=== PATIENT | female | born 1975 | race Caucasian/White ===

== ENCOUNTER 2017-02-22 14:49 | Emergency (ER) | payer MEDICARE, MEDICAID | END 2017-02-22 15:40 | disposition left against medical advice (07) | LOC: ER 14:49 | DX: Z53.20 Procedure and treatment not carried out because of patient's decision for unspecified reasons (principal) ==

== ENCOUNTER 2017-02-22 20:55 | Emergency (ER) | payer MEDICAID, MEDICARE ==
--- NOTE | 2017-02-22 21:22 | Emergency Department Record ---
History of Present Illness - General Chief complaint: Dental Stated complaint: DENTAL PAIN Time Seen by Provider: 02/22/17 21:20 Source: Patient Mode of Arrival: Ambulatory Limitations: No limitations - History of Present Illness Initial comments: 41 yo female presents to ED with a CC of dental pain for the past 1 week. Patient reports that her PCP recently treated her symptoms with Keflex which improved her pain symptoms. Patient denies fevers, chills, or gingival swelling. Patient reports a chronic history of dental caries as she is scarred to go to the dentist. Patient has been taking Tylenol and Motrin without significant improvement in her pain symptoms. MD complaint: Tooth pain Onset/Timin -: Week(s) Severity: Severe Quality: Aching Consistency: Constant Improves with: None Worsens with: None Context- Dental: History of dental caries, Poor dental care Associated Symptoms: Toothache - Related Data Home Medications Medication Instructions Recorded Confirmed Last Taken Dextroamphetamine/Amphetamine 20 mg PO DAILY 03/28/14 02/22/17 08/28/14 [Adderall Xr 20 mg Capsule] Clonazepam 0.25 mg PO QHS PRN #30 11/14/16 Unknown Previous Rx's Medication Instructions Recorded Cephalexin [Keflex] 500 mg PO QID #27 cap 02/22/17 Hydrocodone/Acetaminophen [[place] 1 tab PO Q6H PRN #5 tab 02/22/17 5mg/325mg] Allergies Allergy/AdvReac Type Severity Reaction Status Date / Time ephedrine Allergy RASH Unverified 01/15/17 16:21 erythromycin base Allergy RASH Unverified 01/15/17 16:21 [Erythromycin Base] Penicillins Allergy RASH Unverified 01/15/17 16:21 clendamycin Allergy Intermediate NAUSEA Uncoded 01/15/17 16:21 Travel Screening - Travel/Exposure Within Last 30 Days Have you traveled within the last 30 days?: No Review of Systems Constitutional: Denies: Chills, Fever, Malaise, Night sweats Eyes: Denies: Eye discharge, Eye pain, Photophobia ENT: Reports: Dental pain, Other (Right sided facial swelling). Denies: Congestion, Ear pain, Epistaxis Respiratory: Denies: Cough, Dyspnea Cardiovascular: Denies: Chest pain, Dyspnea on exertion, Palpitations, Paroxysmal nocturnal dyspnea Endocrine: Denies: Fatigue, Heat or cold intolerance Gastrointestinal: Denies: Abdominal pain, Nausea, Vomiting Genitourinary: Denies: Dysuria, Frequency, Hematuria, Incontinence Musculoskeletal: Denies: Arthralgia, Back pain, Gout, Joint swelling Skin: Denies: Bruising, Change in color Neurological: Denies: Abnormal gait, Confusion, Headache, Seizure Psychiatric: Denies: Anxiety Hematological/Lymphatic: Denies: Anemia, Blood Clots Past Medical History - SOCIAL HISTORY Smoking Status: Current every day smoker Alcohol Use: None Drug Use: None - RESPIRATORY Hx Respiratory Disorders: No - CARDIOVASCULAR Hx Cardio Disorders: No - NEURO Hx Neuro Disorders: Yes Hx Headaches: Yes Hx Seizures: Yes - GI Hx GI Disorders: No - Hx Genitourinary Disorders: No - ENDOCRINE Hx Endocrine Disorders: No - MUSCULOSKELETAL Hx Musculoskeletal Disorders: No - PSYCH Hx Psych Problems: No - HEMATOLOGY/ONCOLOGY Hx Hematology/Oncology Disorders: No Family Medical History Any Significant Family History?: Yes Hx Cancer: Mother Hx Diabetes: Father, Grandparents Hx Heart Disease: Father Hx HTN: Father Physical Exam - General General Appearance: Alert, Oriented x3, Cooperative Limitations: No limitations - Head Head exam: Atraumatic, Normocephalic, Normal inspection Head exam detail: Other (Mild STS to the right infra-orbital region). negative : Abrasion, Contusion, Oliveros's sign, General tenderness, Hematoma, Laceration - Eye Eye exam: Normal appearance. negative: Conjunctival injection, Periorbital swelling, Periorbital tenderness, Scleral icterus - ENT Ear exam: negative: Auricular hematoma, Auricular trauma Nasal Exam: negative: Active bleeding, Discharge, Dried blood, Foreign body Mouth exam: negative: Drooling, Laceration, Muffled voice, Tongue elevation Teeth exam: Dental caries, Dental tenderness #. negative: Gingival enlargement Throat exam: negative: Tonsillar erythema, Tonsillomegaly, R peritonsillar mass , L peritonsillar mass Image of Mouth/Teeth: 1 - Dental tenderness, no gingival STS - Neck Neck exam: Normal inspection. negative: Meningismus, Tenderness - Respiratory Respiratory exam: Normal lung sounds bilaterally. negative: Rales, Respiratory distress, Rhonchi, Stridor - Cardiovascular Cardiovascular Exam: Regular rate, Normal rhythm, Normal heart sounds - GI/Abdominal GI/Abdominal exam: Soft. negative: Rebound, Rigid, Tenderness - Rectal Rectal exam: Deferred - exam: Deferred - Extremities Extremities exam: Normal inspection. negative: Calf tenderness, Pedal edema, Tenderness - Back Back exam: Denies: CVA tenderness (R), CVA tenderness (L) - Neurological Neurological exam: Alert, Normal gait, Oriented X3 - Psychiatric Psychiatric exam: Normal affect, Normal mood - Skin Skin exam: Normal color. negative: Abrasion Type of lesion: negative: abrasion Course Vital Signs 02/22/17 21:11 Temperature 98.7 F Pulse Rate [ 105 H Pulse Ox Probe] Respiratory 20 Rate Blood Pressure 146/91 [Left Arm] Pulse Ox 100 - Reevaluation(s) Reevaluation #1: 02/22/17 21:28 Patient's symptoms appear c/w dental caries, patient appears stable for discharge on Keflex (reports this worked well for her previously) and [place] for her pain symptoms. Patient is going to call [facility] in the morning for dental follow-up. Disposition Disposition: Discharge Clinical Impression: Dental caries Disposition: Home, Self-Care Condition: (2) Stable Instructions: Dental Abscess (ED) Additional Instructions: Return to ED if your symptoms worsen or if you have any concerns. [place] and Keflex as directed. Follow-up with [facility] in 1-2 days as directed. Prescriptions: Cephalexin [Keflex] 500 mg PO QID #27 cap Hydrocodone/Acetaminophen [[place] 5mg/325mg] 1 tab PO Q6H PRN #5 tab PRN Reason: Pain - General Forms: Patient Portal Access Time of Disposition: 21:22
[2017-02-22] MEDS ORDERED: HYDROCODONE/APAP 5/325MG TABLET PO ONE (21:25)
[2017-02-22] MEDS ORDERED: CEPHALEXIN 500 MG CAPSULE PO STA (21:25)
== END 2017-02-22 21:32 | disposition home or self-care (01) ==
LOC: ER 20:55
DX: K02.9 Dental caries, unspecified (principal)
CPT/HCPCS: 99282

== ENCOUNTER 2017-03-07 19:04 | Emergency (ER) | payer MEDICARE, MEDICAID ==
--- NOTE | 2017-03-07 19:23 | Emergency Department Record ---
History of Present Illness - General Chief Complaint: Headache Migraine Stated Complaint: SANDHU Time Seen by Provider: 03/07/17 19:17 Source: Patient Mode of Arrival: Ambulatory Limitations: No limitations - History of Present Illness Initial Comments: 41 yo female presents with a headache. She reports a history many years of migraines. They have been worse in the last 3 months as she has been dealing with stress, dental problems. She does not have aura. She does have light sensitivity. No vomiting but she does have nausea. No vision changes, no weakness. No new or atypical symptoms that are different form her prior migraines. She has left lower dental pain that has been ongoing for one month. She recently improved on Keflex but she feels the swelling returning. No neck pain. MD Complaint: "Migraine" -: Days(s) Onset Description: Gradual Location: Diffuse Severity: Moderate Quality: Aching Consistency: Constant Improves With: Nothing Worsens With: Light, Noise Context: Other Associated Symptoms: Nausea, Photophobia Treatments Prior to Arrival: Ibuprofen - Related Data Home Medications Medication Instructions Recorded Confirmed Last Taken Dextroamphetamine/Amphetamine 20 mg PO DAILY 03/28/14 03/07/17 08/28/14 [Adderall Xr 20 mg Capsule] Clonazepam 0.25 mg PO QHS PRN #30 11/14/16 03/07/17 Unknown Previous Rx's Medication Instructions Recorded Cephalexin [Keflex] 500 mg PO QID #28 cap 03/07/17 Allergies Allergy/AdvReac Type Severity Reaction Status Date / Time clindamycin Allergy PT UNSURE Verified 03/07/17 19:28 OF REACTION ephedrine Allergy RASH Unverified 01/15/17 16:21 erythromycin base Allergy RASH Unverified 01/15/17 16:21 [Erythromycin Base] Penicillins Allergy RASH Unverified 01/15/17 16:21 Review of Systems Constitutional: Denies: Chills, Fever, Malaise, Weakness Eyes: Denies: Eye discharge ENT: Reports: As per HPI, Dental pain. Denies: Congestion, Throat pain Respiratory: Denies: Cough, Dyspnea, Hemoptysis, Stridor, Wheezes Cardiovascular: Denies: Chest pain, Palpitations, Syncope Endocrine: Denies: Fatigue Gastrointestinal: Reports: Nausea. Denies: Diarrhea Genitourinary: Denies: Dysuria, Frequency, Urgency Musculoskeletal: Denies: Arthralgia, Back pain, Myalgia, Neck pain Skin: Denies: Bruising, Change in color, Rash Neurological: Reports: As per HPI, Headache. Denies: Abnormal gait, Confusion, Numbness, Paresthesias, Seizure, Tingling, Vertigo, Weakness Psychiatric: Denies: Anxiety Hematological/Lymphatic: Denies: Blood Clots, Easy bleeding, Easy bruising, Swollen glands Past Medical History - SOCIAL HISTORY Smoking Status: Current every day smoker Drug Use: None - RESPIRATORY Hx Respiratory Disorders: No - CARDIOVASCULAR Hx Cardio Disorders: No - NEURO Hx Neuro Disorders: Yes Hx Headaches: Yes Hx Seizures: Yes - GI Hx GI Disorders: No - Hx Genitourinary Disorders: No - ENDOCRINE Hx Endocrine Disorders: No - MUSCULOSKELETAL Hx Musculoskeletal Disorders: No - PSYCH Hx Psych Problems: No - HEMATOLOGY/ONCOLOGY Hx Hematology/Oncology Disorders: No Family Medical History Hx Cancer: Mother Hx Diabetes: Father, Grandparents Hx Heart Disease: Father Hx HTN: Father Physical Exam - General General Appearance: Alert, Oriented x3, Cooperative, No acute distress Limitations: No limitations - Head Head exam: Atraumatic, Normocephalic, Normal inspection - Eye Eye exam: Normal appearance, PERRL. negative: Conjunctival injection, EOMI, Periorbital swelling - ENT ENT exam: Normal exam, Mucous membranes moist, TM's normal bilaterally Ear exam: Normal external inspection Nasal Exam: Normal inspection Mouth exam: Normal external inspection Teeth exam: Dental caries, Dental tenderness #, Fractured tooth #, Other (No abscess). negative: Normal inspection, Gingival enlargement Throat exam: Normal inspection. negative: Tonsillar erythema, Tonsillomegaly, R peritonsillar mass, L peritonsillar mass - Neck Neck exam: Normal inspection, Full ROM. negative: Lymphadenopathy, Meningismus , Tenderness - Respiratory Respiratory exam: Normal lung sounds bilaterally. negative: Respiratory distress - Cardiovascular Cardiovascular Exam: Regular rate, Normal rhythm, Normal heart sounds - GI/Abdominal GI/Abdominal exam: Soft - Rectal Rectal exam: Deferred - exam: Deferred - Extremities Extremities exam: Normal inspection, Full ROM, Normal capillary refill. negative: Calf tenderness, Pedal edema, Tenderness - Back Back exam: Reports: Normal inspection, Full ROM. Denies: CVA tenderness (R), CVA tenderness (L), Muscle spasm, Paraspinal tenderness, Rash noted, Tenderness , Vertebral tenderness - Neurological Neurological exam: Alert, CN II-XII intact, Normal gait, Oriented X3. negative : Motor sensory deficit - Psychiatric Psychiatric exam: Normal affect, Normal mood - Skin Skin exam: Dry, Intact, Normal color, Warm Course - Reevaluation(s) Reevaluation #1: EMR reviewed for prior ED visits for migraine. Multiple noted but not with significant frequency 03/07/17 19:20 Reevaluation #2: MAPS reviewed No pattern of obvious abuse We did discuss Narcotic monitoring and any intermediate teacher treatments would be through a PCP. The patient has a ride and states she will not be driving. 03/07/17 19:43 03/07/17 20:10 Disposition Disposition: Discharge Clinical Impression: Pain, dental Migraine Qualifiers: Migraine type: without aura Status migrainosus presence: without status migrainosus Intractability: not intractable Qualified Code(s): G43.009 - Migraine without aura, not intractable, without status migrainosus Instructions: Migraine Headache (ED), Toothache (ED) Additional Instructions: Rest and stay well hydrated Return to the ER if worse, vomiting, fever or any new concerns Call your doctor Thursday for close follow up follow up with your dentist next available appointment Prescriptions: Cephalexin [Keflex] 500 mg PO QID #28 cap Forms: Patient Portal Access Time of Disposition: 19:34
[2017-03-07] MEDS ORDERED: CEPHALEXIN 500 MG CAPSULE PO STA (19:32)
[2017-03-07] MEDS ORDERED: NALBUPHINE HCL 20 MG/ML AMPULE IM ONE (19:32)
== END 2017-03-07 20:11 | disposition home or self-care (01) ==
LOC: ER 19:04
DX: G43.009 Migraine without aura, not intractable, without status migrainosus (principal); K08.89 Other specified disorders of teeth and supporting structures; R11.0 Nausea; H53.149 Visual discomfort, unspecified
CPT/HCPCS: 99283 ×2; 96372; J2300

== ENCOUNTER 2017-12-23 12:08 | Emergency (ER) | payer MEDICARE, MEDICAID ==
--- NOTE | 2017-12-23 13:13 | Emergency Department Record ---
History of Present Illness - General Chief complaint: Abscess Stated complaint: ABSSESS TOOTH Time Seen by Provider: 12/23/17 13:03 Mode of Arrival: Ambulatory - History of Present Illness Initial comments: yesterday painful upper right canine tooth which is also broken and she has a dentist and her right side of face is swollen. Onset/Timin -: Days(s) Location: Generalized Severity: Mild Severity scale (1-10): 7 Quality: Aching Consistency: Constant Improves with: None Worsens with: None Treatments Prior to Arrival: Other Treatment Prior to Arrival Comment:: ibuprofen 0700 - Related Data Previous Rx's Medication Instructions Recorded Cephalexin [Keflex] 500 mg PO QID #40 cap 12/23/17 Naproxen [Naprosyn] 500 mg PO Q12H #30 tab. 12/23/17 Allergies Allergy/AdvReac Type Severity Reaction Status Date / Time clindamycin Allergy PT UNSURE Verified 12/23/17 12:40 OF REACTION ephedrine Allergy RASH Verified 12/23/17 12:40 erythromycin base Allergy RASH Verified 12/23/17 12:40 [Erythromycin Base] Penicillins Allergy RASH Verified 12/23/17 12:40 Travel Screening - Travel/Exposure Within Last 30 Days Have you traveled within the last 30 days?: No - Travel/Exposure Within Last Year Have you traveled outside the [place] in the last year?: No - Additonal Travel Details Have you been exposed to anyone with a communicable illness?: No Review of Systems Reviewed: No additional complaints except as noted below Constitutional: Reports: As per HPI. Denies: Chills, Fever, Malaise, Night sweats, Weakness, Weight change Eyes: Reports: As per HPI. Denies: Eye discharge, Eye pain, Photophobia, Vision change ENT: Reports: As per HPI, Dental pain. Denies: Congestion, Ear pain, Epistaxis , Hearing loss, Throat pain Respiratory: Reports: As per HPI. Denies: Cough, Dyspnea, Hemoptysis, Stridor, Wheezes Cardiovascular: Reports: As per HPI. Denies: Arrhythmia, Chest pain, Dyspnea on exertion, Edema, Murmurs, Orthopnea, Palpitations, Paroxysmal nocturnal dyspnea, Rheumatic Fever, Syncope Endocrine: Reports: As per HPI. Denies: Fatigue, Heat or cold intolerance, Polydipsia, Polyuria Gastrointestinal: Reports: As per HPI. Denies: Abdominal pain, Constipation, Diarrhea, Hematemesis, Hematochezia, Melena, Nausea, Vomiting Genitourinary: Reports: As per HPI. Denies: Abnormal menses, Discharge, Dyspareunia, Dysuria, Frequency, Hematuria, Incontinence, Retention, Urgency Musculoskeletal: Reports: As per HPI. Denies: Arthralgia, Back pain, Gout, Joint swelling, Myalgia, Neck pain Skin: Reports: As per HPI. Denies: Bruising, Change in color, Change in hair/ nails, Lesions, Pruritus, Rash Neurological: Reports: As per HPI. Denies: Abnormal gait, Confusion, Headache, Numbness, Paresthesias, Seizure, Tingling, Tremors, Vertigo, Weakness Psychiatric: Reports: As per HPI. Denies: Anxiety, Auditory hallucinations, Depression, Homicidal thoughts, Suicidal thoughts, Visual hallucinations Hematological/Lymphatic: Reports: As per HPI. Denies: Anemia, Blood Clots, Easy bleeding, Easy bruising, Swollen glands Past Medical History - SOCIAL HISTORY Smoking Status: Current every day smoker Alcohol Use: None Drug Use: None - RESPIRATORY Hx Respiratory Disorders: No - CARDIOVASCULAR Hx Cardio Disorders: No - NEURO Hx Neuro Disorders: Yes Hx Headaches: Yes Hx Seizures: Yes - GI Hx GI Disorders: No Hx Irritable Bowel: Yes (IBSD) - Hx Genitourinary Disorders: No - ENDOCRINE Hx Endocrine Disorders: No - MUSCULOSKELETAL Hx Musculoskeletal Disorders: No - PSYCH Hx Psych Problems: No Hx Anxiety: Yes Hx Depression: Yes Comment:: ADD - HEMATOLOGY/ONCOLOGY Hx Hematology/Oncology Disorders: No Family Medical History Any Significant Family History?: No Hx Cancer: Mother Hx Diabetes: Father, Grandparents Hx Heart Disease: Father Hx HTN: Father Physical Exam - General General Appearance: Alert, Oriented x3, Cooperative, No acute distress - Head Head exam: Normal inspection - Eye Eye exam: Normal appearance, PERRL Pupils: Normal accommodation - ENT ENT exam: Normal exam, Mucous membranes moist, Normal external ear exam, Normal orophraynx, TM's normal bilaterally Ear exam: Normal external inspection. negative: External canal tenderness Nasal Exam: Normal inspection. negative: Discharge, Sinus tenderness Mouth exam: Normal external inspection, Tongue normal Teeth exam: Dental tenderness #, Fractured tooth #, Other (swollen gum). negative: Dental caries Throat exam: Normal inspection. negative: Tonsillar erythema, Tonsillar exudate - Neck Neck exam: Normal inspection, Full ROM. negative: Tenderness - Respiratory Respiratory exam: Normal lung sounds bilaterally. negative: Respiratory distress - Cardiovascular Cardiovascular Exam: Regular rate, Normal rhythm, Normal heart sounds - GI/Abdominal GI/Abdominal exam: Soft, Normal bowel sounds. negative: Tenderness - Rectal Rectal exam: Deferred - exam: Deferred - Extremities Extremities exam: Normal inspection, Full ROM, Normal capillary refill. negative: Tenderness - Back Back exam: Reports: Normal inspection, Full ROM. Denies: Muscle spasm, Rash noted, Tenderness - Neurological Neurological exam: Alert, Normal gait, Oriented X3, Reflexes normal - Psychiatric Psychiatric exam: Normal affect, Normal mood - Skin Skin exam: Dry, Intact, Normal color, Warm, Other (facial swelling upper lip and into right cheek ) Course Vital Signs 12/23/17 12:33 Temperature 98.4 F Pulse Rate 105 H Respiratory 20 Rate Blood Pressure 152/86 Pulse Ox 99 - Reevaluation(s) Reevaluation #1: patient states she doesn't know what the PCN reactin was she was a baby but she has had keflex before with no problems 12/23/17 13:18 Disposition Clinical Impression: Dental infection, Dental caries Tooth fracture Qualifiers: Encounter type: initial encounter Fracture type: closed Qualified Code(s): S02.5XXA - Fracture of tooth (traumatic), initial encounter for closed fracture Disposition: Home, Self-Care Instructions: Dental Abscess (ED), Gingivostomatitis (ED) Additional Instructions: follow up with a dentist in 2 days return to ED if worse warm water rinses 8 times a day Prescriptions: Cephalexin [Keflex] 500 mg PO QID #40 cap Naproxen [Naprosyn] 500 mg PO Q12H #30 tab.dr Forms: Patient Portal Access Time of Disposition: 13:20 Quality - Quality Measures Quality Measures: N/A - Blood Pressure Screening Does Patient Have Any of the Following: No Blood Pressure Classification: Pre-Hypertensive BP Reading Systolic Measurement: 152 Diastolic Measurement: 86 Screening for High Blood Pressure: < Pre-Hypertensive BP, F/U Documented > [ [id number]] Pre-Hypertensive Follow-up Interventions: Referral to alternative/primary care provider.
[2017-12-23] MEDS: CEFTRIAXONE 1 GRAM VIAL IM ONE (13:29)
== END 2017-12-23 13:56 | disposition home or self-care (01) ==
LOC: ER 12:08
DX: S02.5XXA Fracture of tooth (traumatic), initial encounter for closed fracture (principal); K02.9 Dental caries, unspecified; K04.7 Periapical abscess without sinus; X58.XXXA Exposure to other specified factors, initial encounter; F17.210 Nicotine dependence, cigarettes, uncomplicated
CPT/HCPCS: 96372; 99283

== ENCOUNTER 2019-06-02 11:31 | Emergency (ER) | payer MEDICARE, MEDICAID ==
--- NOTE | 2019-06-02 11:42 | Emergency Department Record ---
History of Present Illness - General Stated Complaint: LEFT FLANK PAIN Time Seen by Provider: 06/02/19 11:33 Source: Patient Mode of Arrival: Ambulatory Limitations: No limitations - History of Present Illness Initial Comments: 43 yo female presents with left flank pain for about 4 days. The pain started in the back and now wraps around to the front. No fever. No rash. No vomiting but she has some nausea. No changes in bowel function. No bloody stools or diarrhea. No history of renal stones. She has had her gall bladder and appendix removed. No history of diverticulitis. It hurts to move around at times. Dr Willis is her PCP. MD Complaint: Abdominal pain, Flank pain -: Days(s) (4) Location: L Flank Radiation: LUQ, LLQ Migration to: LUQ, LLQ Quality: Aching, Sharp Consistency: Constant Improves With: Nothing Worsens With: Movement Context: Other Associated Symptoms: Nausea - Related Data Home Medications Medication Instructions Recorded Confirmed Last Taken Cholecalciferol (Vitamin D3) 4,000 unit PO DAILY 06/02/19 06/02/19 Unknown [Vitamin D3] Multivitamin [Multi-Vitamin Daily] 1 each PO DAILY 06/02/19 06/02/19 Unknown Rosuvastatin Calcium [Crestor] 20 mg PO DAILY 06/02/19 06/02/19 Unknown Previous Rx's Medication Instructions Recorded Hydrocodone/APAP 5/325Mg [[place] 1 each PO Q6H #8 tab 06/02/19 5Mg/325Mg] Allergies Allergy/AdvReac Type Severity Reaction Status Date / Time clindamycin Allergy PT UNSURE Verified 06/02/19 11:42 OF REACTION ephedrine Allergy RASH Verified 06/02/19 11:42 erythromycin base Allergy RASH Verified 06/02/19 11:42 [Erythromycin Base] Penicillins Allergy RASH Verified 06/02/19 11:42 doxycycline AdvReac Mild GI distress Verified 06/02/19 11:42 Review of Systems Constitutional: Denies: Chills, Fever, Malaise, Weakness Eyes: Denies: Eye discharge ENT: Denies: Congestion, Throat pain Respiratory: Denies: Cough, Dyspnea, Wheezes Cardiovascular: Denies: Chest pain, Palpitations, Syncope Endocrine: Denies: Fatigue, Polydipsia, Polyuria Genitourinary: Denies: Abnormal menses, Dysuria, Frequency, Hematuria, Incontinence, Retention, Urgency Musculoskeletal: Reports: Back pain. Denies: Arthralgia, Joint swelling, Myalgia Skin: Denies: Bruising, Change in color, Rash Neurological: Denies: Confusion, Headache, Numbness, Weakness Psychiatric: Denies: Anxiety Hematological/Lymphatic: Denies: Easy bleeding, Easy bruising Past Medical History - SOCIAL HISTORY Smoking Status: Current every day smoker Drug Use: None - RESPIRATORY Hx Respiratory Disorders: No - CARDIOVASCULAR Hx Cardio Disorders: No - NEURO Hx Neuro Disorders: Yes Hx Headaches: Yes Hx Seizures: Yes - GI Hx GI Disorders: No Hx Irritable Bowel: Yes (IBSD) - Hx Genitourinary Disorders: No - ENDOCRINE Hx Endocrine Disorders: No - MUSCULOSKELETAL Hx Musculoskeletal Disorders: No - PSYCH Hx Psych Problems: No Hx Anxiety: Yes Hx Depression: Yes Comment:: ADD - HEMATOLOGY/ONCOLOGY Hx Hematology/Oncology Disorders: No Family Medical History Hx Cancer: Mother Hx Diabetes: Father, Grandparents Hx Heart Disease: Father Hx HTN: Father Physical Exam - General General Appearance: Alert, Oriented x3, Cooperative, No acute distress Limitations: No limitations - Head Head exam: Atraumatic, Normal inspection - Eye Eye exam: Normal appearance, PERRL. negative: Conjunctival injection, Scleral icterus - ENT ENT exam: Normal exam, Mucous membranes moist Ear exam: Normal external inspection Nasal Exam: Normal inspection Mouth exam: Normal external inspection - Neck Neck exam: Normal inspection - Respiratory Respiratory exam: Normal lung sounds bilaterally. negative: Respiratory distress - Cardiovascular Cardiovascular Exam: Regular rate, Normal rhythm, Normal heart sounds - GI/Abdominal GI/Abdominal exam: Soft, Tenderness (obese, soft abdomen. Tender left flank to left anterior abdomen, no rebound, no guarding, mild examination findings.). negative: Distended, Guarding - Rectal Rectal exam: Deferred - exam: Deferred - Extremities Extremities exam: Normal inspection. negative: Pedal edema - Back Back exam: Reports: CVA tenderness (L), Full ROM. Denies: CVA tenderness (R), Paraspinal tenderness, Vertebral tenderness - Neurological Neurological exam: Alert, Normal gait, Oriented X3. negative: Abnormal gait - Psychiatric Psychiatric exam: Normal affect, Normal mood. negative: Agitated, Anxious - Skin Skin exam: Dry, Intact, Normal color, Warm Course - Reevaluation(s) Reevaluation #1: 06/02/19 12:15 The labs results were reviewed There are no acute significant abnormalities of the CBC (WBC is 12.6) There are no acute significant abnormalities of the BMP The UA was reviewed. No signs of infection or significant acute abnormality The HCG is negative 06/02/19 12:[address] scan was reviewed Dominant L ovary vs cyst. Otherwise no acute process. We discussed the results of the tests and questions were answered at the time of discharge. The patient is doing well and is comfortable with DC. DC vitals were reviewed. We discussed at length reasons to immediately return to the ED as well as close follow up. The patient will call the PCP or DIE STAMPING PRESS OPERATOR for close follow up of this ED visit to review this visit and the tests performed 06/02/19 13:00 The patient has an DIE STAMPING PRESS OPERATOR. She has a referral already for outpatient US. She will go from the ED to schedule her US with radiology and follow up as scheduled with her [employer] LINE UP PERSON. 06/02/19 13:00 The patient was prescribed a controlled substance. The prescription does not exceed three days. MAPS was reviewed at the time of the prescripts The topics of abuse, addiction, over dose, dangers of multiple medications, disposal, and illegal distribution were discussed with the patient. The patient verbalized understanding of the risks of the medication being provided Medical Decision Making - Lab Data Result diagrams: 06/02/19 11:45 06/02/19 11:45 Disposition Disposition: Discharge Clinical Impression: Left flank pain, Left ovarian cyst Disposition: Home, Self-Care Condition: (1) Good Instructions: Flank Pain (ED), Ovarian Cyst (ED) Additional Instructions: Call your doctor for the next available follow up appointment Review this ER visit and the tests performed with your family doctor Return to the ER for a recheck if worse, any new concerns or questions Take the prescriptions provided as directed Make the appointment for the US with your OB that is already scheduled. Prescriptions: Hydrocodone/APAP 5/325Mg [[place] 5Mg/325Mg] 1 each PO Q6H #8 tab Time of Disposition: 13:01 Quality - Quality Measures Quality Measures: N/A - Blood Pressure Screening Does Patient Have Any of the Following: Active Dx of HTN Blood Pressure Classification: Hypertensive Reading Systolic Measurement: 180 Diastolic Measurement: 95 Screening for High Blood Pressure: Patient Exclusion, Hx of HTN [G9744]
[2019-06-02] MEDS ORDERED: KETOROLAC 30 MG/ML VIAL IVP ONE (11:44)
[2019-06-02] MEDS ORDERED: SODIUM CHLORIDE 0.9% 500 ML IV ONE (11:44)
[2019-06-02] MEDS ORDERED: ONDANSETRON HCL IV 4 MG/2 ML VIAL IVP ONE (11:53)
[2019-06-02 11:54] LABS: ABSOLUTE NEUTROPHIL COUNT 9.03; BASO % 0.4 % (0-6); EOS % 2.3 % (0-6); GRAN % 71.9 % (47-80); HEMATOCRIT 45.7 % (35.0-47.0); LYMPH % 19.2 % (16-45); MEAN CELL VOLUME 88.7 fl (81-97); MEAN CORPUSCULAR HEMOGLOBIN 29.1 pg (27-33); MEAN CORPUSCULAR HGB CONC 32.8 g/dl (32-36); MEAN PLATELET VOLUME 9.6 fl (7.4-10.4); MONO % 6.2 % (0-9); PLATELET COUNT 311 K/uL (130-400); RED BLOOD COUNT 5.15 M/uL (3.80-5.40); RED CELL DISTRIBUTION WIDTH 15.4 % (11.5-14.5); WHITE BLOOD COUNT W/O DIFF 12.6 K/uL (4.2-12.2)
[2019-06-02 11:56] LABS: URINE APPEARANCE CLEAR; URINE BILIRUBIN NEGATIVE (NEGATIVE); URINE BLOOD NEGATIVE (NEGATIVE); URINE COLOR YELLOW; URINE GLUCOSE (UA) NEGATIVE (NEGATIVE); URINE KETONE NEGATIVE (NEGATIVE); URINE LEUKOCYTE ESTERASE NEGATIVE (NEGATIVE); URINE NITRITE NEGATIVE (NEGATIVE); URINE PROTEIN TRACE (NEGATIVE); URINE UROBILINOGEN 0.2 E.U./dL (0.20 - 1.00)
[2019-06-02 11:58] LABS: HCG,QUALITATIVE URINE NEGATIVE (NEGATIVE)
[2019-06-02 12:07] LABS: URINE BACTERIA FEW; URINE RBC 0 - 2 (NONE SEEN); URINE SQUAMOUS EPITHELIAL CELL 16 - 20 /hpf; URINE WBC 0 - 2 (0-2/hpf)
[2019-06-02 12:08] LABS: BLOOD UREA NITROGEN 12 mg/dL (6-20); CREATININE 0.5 mg/dL (0.5-0.9); EST GLOMERULAR FILTRATION RATE > 60 mL/min
[2019-06-02 12:11] LABS: GLUCOSE,RANDOM 129 mg/dL (74-109)
--- NOTE | 2019-06-03 14:08 | CT SCAN REPORT ---
EXAM: CT OF THE ABDOMEN AND PELVIS WITHOUT CONTRAST HISTORY: LEFT BACK AND FLANK PAIN FOR 4-5 DAYS. PRIOR CHOLECYSTECTOMY AND APPENDECTOMY. TECHNIQUE: Helical CT examination of the abdomen and pelvis was performed without oral or intravenous contrast administration. Lack of oral and IV contrast utilization limits evaluation of the bowel and solid viscera respectively. Comparison: Pelvic ultrasound dated 11/17/14. FINDINGS: Linear scarring versus atelectasis is present within the inferior lingula. Minor atelectasis versus scarring also suggested within the posterior medial right lung base. The visualized lung bases are otherwise clear. No pleural or pericardial effusion. The heart is not enlarged. There is diffuse decreased density of the liver relative to the spleen with small areas of sparing scattered within the left liver lobe and caudate. These areas of low density are consistent with steatosis. No suspicious focal hepatic lesion. The gallbladder is surgically absent. No biliary ductal dilatation is identified. The pancreas and adrenal glands are normal in appearance. There is a small hypodense mass within the superomedial aspect of the spleen measuring 12 x 11 mm. This has fluid density and is likely a cyst. Hemangioma is less likely. The kidneys are normal in size, position and are smoothly marginated. No nephrolithiasis nor renal mass. The renal collecting systems are normal in caliber and no convincing ureteral calculus is demonstrated. No intraabdominal nor retroperitoneal lymphadenopathy. There is mild diffuse atherosclerosis without aneurysm of the abdominal aorta nor iliac arteries. There is a possible dominant follicle/cyst within the left ovary measuring up to 3 cm. If clinically warranted, this could be further evaluated with pelvic sonography. No other evidence of pelvic mass nor lymphadenopathy. No intrinsic urinary bladder abnormality. Benign appearing calcification is noted adjacent to the left posterior margin of the uterine body. No gross bowel dilatation nor bowel wall thickening. The appendix is surgically absent. A fat filled umbilical hernia is present. No lytic or blastic bone lesion. Mild degenerative changes scattered throughout the visualized spine. IMPRESSION: 1. MILD PROMINENCE OF THE INFERIOR ASPECT OF THE LEFT OVARY POSSIBLY THE RESULT OF A DOMINANT FOLLICLE/CYST MEASURING UP TO 3 CM. IF CLINICALLY WARRANTED THIS COULD BE FURTHER EVALUATED WITH PELVIC SONOGRAPHY. 2. STATUS POST CHOLECYSTECTOMY AND APPENDECTOMY. 3. DIFFUSE HEPATIC STEATOSIS. 4. SMALL HYPODENSE MASS WITHIN THE SUPERIOR SPLEEN MEASURING 12 MM CONSISTENT WITH A CYST OR HEMANGIOMA. JOB NUMBER: [id number] [facility]
== END 2019-06-02 13:21 | disposition home or self-care (01) ==
LOC: ER 11:31
DX: N83.202 Unspecified ovarian cyst, left side (principal); R10.84 Generalized abdominal pain; R11.0 Nausea; F17.210 Nicotine dependence, cigarettes, uncomplicated
CPT/HCPCS: 99284 ×2; 96374; 96375; 85025; 80048; 81001; 81025; 74176; J1885; J2405

== ENCOUNTER 2019-06-19 11:20 | Emergency (ER) | payer MEDICARE, MEDICAID ==
[2019-06-19] MEDS ORDERED: KETOROLAC 60 MG/2 ML VIAL IM STA (11:37)
[2019-06-19] MEDS ORDERED: LORAZEPAM 2 MG/ML VIAL IM ONE (11:37)
--- NOTE | 2019-06-19 11:39 | Emergency Department Record ---
History of Present Illness - General Chief complaint: Rash Stated complaint: RASH Time Seen by Provider: 06/19/19 11:35 Source: Patient, RN notes reviewed - History of Present Illness Initial comments: patient states left T10 pain with a shingles rash and she states it is painful and she finished her norco and she was given forco 50 pills on June 13. She is also taking valtrex three times a day currently and she sees Dr Matute. She also has congestion and cough. PMH of drug use - Related Data Home Medications Medication Instructions Recorded Confirmed Last Taken Valacyclovir HCl [Valacyclovir] 1,000 mg PO TID 06/19/19 06/19/19 06/19/19 Previous Rx's Medication Instructions Recorded Hydrocodone/APAP 5/325Mg [[place] 1 each PO Q6H #8 tab 06/02/19 5Mg/325Mg] Gabapentin [Neurontin] 300 mg PO TID #30 cap 06/19/19 Allergies Allergy/AdvReac Type Severity Reaction Status Date / Time clindamycin Allergy PT UNSURE Verified 06/19/19 11:39 OF REACTION ephedrine Allergy RASH Verified 06/19/19 11:39 erythromycin base Allergy RASH Verified 06/19/19 11:39 [Erythromycin Base] Penicillins Allergy RASH Verified 06/19/19 11:39 doxycycline AdvReac Mild GI distress Verified 06/19/19 11:39 Review of Systems Reviewed: No additional complaints except as noted below Constitutional: Reports: As per HPI. Denies: Chills, Fever, Malaise, Night sweats, Weakness, Weight change Eyes: Reports: As per HPI. Denies: Eye discharge, Eye pain, Photophobia, Vision change ENT: Reports: As per HPI. Denies: Congestion, Dental pain, Ear pain, Epistaxis, Hearing loss, Throat pain Respiratory: Reports: As per HPI. Denies: Cough, Dyspnea, Hemoptysis, Stridor, Wheezes Cardiovascular: Reports: As per HPI. Denies: Arrhythmia, Chest pain, Dyspnea on exertion, Edema, Murmurs, Orthopnea, Palpitations, Paroxysmal nocturnal dyspnea, Rheumatic Fever, Syncope Endocrine: Reports: As per HPI. Denies: Fatigue, Heat or cold intolerance, Polydipsia, Polyuria Gastrointestinal: Reports: As per HPI. Denies: Abdominal pain, Constipation, Diarrhea, Hematemesis, Hematochezia, Melena, Nausea, Vomiting Genitourinary: Reports: As per HPI. Denies: Abnormal menses, Discharge, Dyspareunia, Dysuria, Frequency, Hematuria, Incontinence, Retention, Urgency Musculoskeletal: Reports: As per HPI. Denies: Arthralgia, Back pain, Gout, Joint swelling, Myalgia, Neck pain Skin: Reports: As per HPI, Rash. Denies: Bruising, Change in color, Change in hair/nails, Lesions, Pruritus Neurological: Reports: As per HPI. Denies: Abnormal gait, Confusion, Headache, Numbness, Paresthesias, Seizure, Tingling, Tremors, Vertigo, Weakness Psychiatric: Reports: As per HPI. Denies: Anxiety, Auditory hallucinations, Depression, Homicidal thoughts, Suicidal thoughts, Visual hallucinations Hematological/Lymphatic: Reports: As per HPI. Denies: Anemia, Blood Clots, Easy bleeding, Easy bruising, Swollen glands Past Medical History - SOCIAL HISTORY Smoking Status: Current every day smoker Drug Use: None - RESPIRATORY Hx Respiratory Disorders: No - CARDIOVASCULAR Hx Cardio Disorders: No - NEURO Hx Neuro Disorders: Yes Hx Headaches: Yes Hx Seizures: Yes - GI Hx GI Disorders: No Hx Irritable Bowel: Yes (IBSD) - Hx Genitourinary Disorders: No - ENDOCRINE Hx Endocrine Disorders: No - MUSCULOSKELETAL Hx Musculoskeletal Disorders: No - PSYCH Hx Psych Problems: No Hx Anxiety: Yes Hx Depression: Yes Comment:: ADD - HEMATOLOGY/ONCOLOGY Hx Hematology/Oncology Disorders: No Family Medical History Hx Cancer: Mother Hx Diabetes: Father, Grandparents Hx Heart Disease: Father Hx HTN: Father Physical Exam - General General Appearance: Alert, Oriented x3, Cooperative, No acute distress - Head Head exam: Normal inspection - Eye Eye exam: Normal appearance, PERRL Pupils: Normal accommodation - ENT ENT exam: Normal exam, Mucous membranes moist, Normal external ear exam, Normal orophraynx, TM's normal bilaterally Ear exam: Normal external inspection. negative: External canal tenderness Nasal Exam: Normal inspection. negative: Discharge, Sinus tenderness Mouth exam: Normal external inspection, Tongue normal Teeth exam: Normal inspection. negative: Dental caries Throat exam: Normal inspection. negative: Tonsillar erythema, Tonsillar exudate - Neck Neck exam: Normal inspection, Full ROM. negative: Tenderness - Respiratory Respiratory exam: Normal lung sounds bilaterally. negative: Respiratory distre ss - Cardiovascular Cardiovascular Exam: Regular rate, Normal rhythm, Normal heart sounds - GI/Abdominal GI/Abdominal exam: Soft, Normal bowel sounds. negative: Tenderness - Rectal Rectal exam: Deferred - exam: Deferred - Extremities Extremities exam: Normal inspection, Full ROM, Normal capillary refill. negative: Tenderness - Back Back exam: Reports: Normal inspection, Full ROM. Denies: Muscle spasm, Rash noted, Tenderness - Neurological Neurological exam: Alert, Normal gait, Oriented X3, Reflexes normal - Psychiatric Psychiatric exam: Normal affect, Normal mood - Skin Skin exam: Rash (typical rash of shingles left T10 area) Course - Reevaluation(s) Reevaluation #1: 06/19/19 12:20 feeling better Reevaluation #2: feeling better 06/19/19 12:23 Disposition Clinical Impression: Herpes zoster Qualifiers: Herpes zoster complications: without complications Qualified Code(s): B02.9 - Zoster without complications Disposition: Home, Self-Care Condition: (2) Stable Instructions: Shingles (ED), Acute Rash (ED) Additional Instructions: follow up with Dr Muhammad in three days motrin three times a day Prescriptions: Gabapentin [Neurontin] 300 mg PO TID #30 cap Forms: Patient Portal Access Time of Disposition: 12:24 Quality - Quality Measures Quality Measures: N/A - Blood Pressure Screening Does Patient Have Any of the Following: No Blood Pressure Classification: Hypertensive Reading Systolic Measurement: 219 Diastolic Measurement: 119 Screening for High Blood Pressure: < First Hypertensive BP, F/U Documented > [G8950] First Hypertensive Follow-up Interventions: Referral to alternative/primary care provider.
== END 2019-06-19 12:33 | disposition home or self-care (01) ==
LOC: ER 11:20
DX: B02.9 Zoster without complications (principal); R05 Cough; F17.210 Nicotine dependence, cigarettes, uncomplicated
CPT/HCPCS: 96372; 99284; J1885

== ENCOUNTER 2019-10-20 13:13 | Emergency (ER) | payer MEDICARE, MEDICAID ==
[2019-10-20] MEDS ORDERED: ACETAMINOPHEN 1,000 MG/100 ML BTL IVPB ONE (13:38)
--- NOTE | 2019-10-20 13:43 | Emergency Department Record ---
History of Present Illness - General Chief Complaint: Headache Migraine Stated Complaint: SWELLING IN MOUTH,THROAT,EARS Time Seen by Provider: 10/20/19 13:21 Source: Patient Mode of Arrival: Ambulatory Limitations: No limitations - History of Present Illness Initial Comments: The patient is here due to multiple complaints. She has been ill for a week with a dry cough, runny nose, ear pain, intermittent fever, ST, body aches, and a SANDHU. The SANDHU is mainly over the R side of the head and has been gradually worsening. The pain is worse when she lies down at night and when she touches the R side of her head. The patient states she has a hx of migraine SANDHU's exactly like this in the past. She denies any hx of any neck or back pain, vomiting or diarrhea. The patient did not get a flu shot this year. MD Complaint: Headache Onset/Timin -: Week(s) Onset Description: Gradual Location: Right Severity: Mild Severity scale (1-10): 4 Quality: Aching Consistency: Constant Improves With: Nothing Worsens With: Other Associated Symptoms: Fever, Nausea, Vomiting Other Symptoms: Cough, Other Treatments Prior to Arrival: Ibuprofen Treatment Prior to Arrival Comment:: 0900 - Related Data Home Medications Medication Instructions Recorded Confirmed Last Taken Ascorbic Acid [Vitamin C] 1 tab PO DAILY 10/20/19 10/20/19 10/20/19 Aspirin 81 mg PO DAILY 10/20/19 10/20/19 10/20/19 Previous Rx's Medication Instructions Recorded Cetirizine HCl [Zyrtec] 10 mg PO DAILY #10 cap 10/20/19 Allergies Allergy/AdvReac Type Severity Reaction Status Date / Time clindamycin Allergy PT UNSURE Verified 10/20/19 13:33 OF REACTION ephedrine Allergy RASH Verified 10/20/19 13:33 erythromycin base Allergy RASH Verified 10/20/19 13:33 [Erythromycin Base] Penicillins Allergy RASH Verified 10/20/19 13:33 doxycycline AdvReac Mild GI distress Verified 10/20/19 13:33 Travel Screening - Travel/Exposure Within Last 30 Days Have you traveled within the last 30 days?: No - Travel/Exposure Within Last Year Have you traveled outside the [place] in the last year?: No - Additonal Travel Details Have you been exposed to anyone with a communicable illness?: No - Travel Symptoms Symptom Screening: Headache Review of Systems Constitutional: Denies: Chills, Fever Eyes: Denies: Eye discharge ENT: Reports: Congestion, Ear pain, Throat pain Respiratory: Reports: Cough. Denies: Dyspnea Cardiovascular: Denies: Arrhythmia, Chest pain Endocrine: Reports: Fatigue Gastrointestinal: Denies: Nausea Genitourinary: Denies: Dysuria Musculoskeletal: Denies: Arthralgia Neurological: Denies: Abnormal gait Past Medical History - SOCIAL HISTORY Smoking Status: Current every day smoker Alcohol Use: None Drug Use: None - RESPIRATORY Hx Respiratory Disorders: No - CARDIOVASCULAR Hx Cardio Disorders: No Comment:: high cholesterol - NEURO Hx Neuro Disorders: Yes Hx Headaches: Yes Hx Seizures: Yes - GI Hx GI Disorders: No Hx Irritable Bowel: Yes (IBSD) - Hx Genitourinary Disorders: No - ENDOCRINE Hx Endocrine Disorders: No - MUSCULOSKELETAL Hx Musculoskeletal Disorders: No - PSYCH Hx Psych Problems: No Hx Anxiety: Yes Hx Depression: Yes Comment:: ADD - HEMATOLOGY/ONCOLOGY Hx Hematology/Oncology Disorders: No Family Medical History Any Significant Family History?: Yes Hx Cancer: Mother Hx Diabetes: Father, Grandparents Hx Heart Disease: Father Hx HTN: Father Physical Exam - General General Appearance: Alert, Oriented x3, Cooperative, No acute distress - Head Head exam: Atraumatic, Normocephalic, Normal inspection (There are no lesions over the R scalp where the pain is mainly located.) - Eye Eye exam: Normal appearance, PERRL. negative: Periorbital swelling - ENT ENT exam: TM's normal bilaterally. negative: Normal exam, Normal orophraynx Throat exam: Tonsillar erythema (mild.). negative: Normal inspection, Tonsill omegaly, Tonsillar exudate, R peritonsillar mass, L peritonsillar mass - Neck Neck exam: Normal inspection, Full ROM. negative: Lymphadenopathy, Meningismus, Tenderness - Respiratory Respiratory exam: Normal lung sounds bilaterally. negative: Respiratory distress - Cardiovascular Cardiovascular Exam: Regular rate, Normal rhythm, Normal heart sounds - Extremities Extremities exam: Normal inspection, Full ROM, Normal capillary refill. nega tive: Tenderness - Neurological Neurological exam: Alert, Normal gait, Oriented X3, Other (Neg Drift and [place].). negative: Abnormal gait, Altered, Motor sensory deficit - Psychiatric Psychiatric exam: negative: Anxious - Skin Skin exam: negative: Rash Course Vital Signs 10/20/19 13:17 Temperature 98.6 F Pulse Rate 100 H Respiratory 19 Rate Blood Pressure 157/81 Pulse Ox 95 - Reevaluation(s) Reevaluation #1: The patient is doing a lot better at this time. She states her SANDHU is much improved and she has not been coughing as much. 10/20/19 14:52 Reevaluation #2: The patient is doing a lot better at this time. She is up walking and is clearly nontoxic and has not been coughing. I did discuss the neg lab tests and the need to continue her regular medicines and see her PCP next week if not better. 10/20/19 15:07 Medical Decision Making - Data Complexity MDM Data: Labs Ordered and/or Reviewed, X-Ray Ordered and/or Reviewed - Lab Data Result diagrams: 10/20/19 13:10 10/20/19 13:10 - Radiology Data Radiology results: Report reviewed (CXR: Neg.) Disposition Disposition: Discharge Clinical Impression: URI, acute Disposition: Home, Self-Care Condition: (2) Stable Instructions: Migraine Headache (ED) Additional Instructions: Please continue your regular medicines and use your home Flonase and Albuterol for the cough and congestion. Please also take Zyrtec. Please see your doctor next week for recheck and return to the ER for any worsening symptoms. Prescriptions: Cetirizine HCl [Zyrtec] 10 mg PO DAILY #10 cap Forms: Patient Portal Access Time of Disposition: 15:09 Quality - Quality Measures Quality Measures: Headache (All Ages) - Headache: Neuroimaging Quality Measure: Measure #419: Overuse of Neuroimaging ICD10 Codes Entered: Yes View Detail: Yes Neurological Exam: Patient had a normal neurological exam. [G9535] Headache: Use of Neuroimaging: < CTA, CT, MRA or MRI was NOT ordered > [G9534] - Blood Pressure Screening View Details: Yes Does Patient Have Any of the Following: Active Dx of HTN Blood Pressure Classification: Pre-Hypertensive BP Reading Systolic Measurement: 157 Diastolic Measurement: 81 Screening for High Blood Pressure: Patient Exclusion, Hx of HTN [G9744]
[2019-10-20 14:20] LABS: ABSOLUTE NEUTROPHIL COUNT 5.02; BASO % 0.3 % (0-6); EOS % 2.7 % (0-6); GRAN % 65.3 % (47-80); HEMATOCRIT 43.8 % (35.0-47.0); LYMPH % 25.8 % (16-45); MEAN CELL VOLUME 91.1 fl (81-97); MEAN CORPUSCULAR HEMOGLOBIN 29.1 pg (27-33); MEAN PLATELET VOLUME 9.7 fl (7.4-10.4); MONO % 5.9 % (0-9); PLATELET COUNT 246 K/uL (130-400); RED BLOOD COUNT 4.81 M/uL (3.80-5.40); RED CELL DISTRIBUTION WIDTH 13.9 % (11.5-14.5); WHITE BLOOD COUNT W/O DIFF 7.7 K/uL (4.2-12.2)
[2019-10-20 14:40] LABS: INFLUENZA A NEGATIVE (NEGATIVE); INFLUENZA B NEGATIVE (NEGATIVE)
--- NOTE | 2019-10-20 14:42 | RADIOLOGY REPORT ---
EXAMINATION: Two View Chest Radiographs EXAM DATE: 10/20/2019 2:05 PM TECHNIQUE: Frontal and lateral views INDICATION: cough COMPARISON: None ENCOUNTER: Not applicable FINDINGS: The heart, mediastinum, and pulmonary vasculature are normal. No lung consolidation or pleural effu sions are present. IMPRESSION: Negative for active intrathoracic disease Dictated by: Jeet Bobo MD on 10/20/2019 2:38 PM. .
[2019-10-20 14:53] LABS: BILIRUBIN,TOTAL < 0.20 mg/dL (0.2-1.0); BLOOD UREA NITROGEN 14 mg/dL (6-20); CREATININE 0.4 mg/dL (0.5-0.9); EST GLOMERULAR FILTRATION RATE > 60 mL/min; TOTAL PROTEIN 7.9 g/dL (6.6-8.7)
[2019-10-20 14:55] LABS: GLUCOSE,RANDOM 192 mg/dL (74-109)
[2019-10-20 14:58] LABS: ALB/GLOB RATIO 1.3 (1.1-1.8); ALBUMIN 4.4 g/dL (4.0-5.0); ALKALINE PHOSPHATASE 102 U/L (35-104); ALT/SGPT 36 U/L (<33); AST/SGOT 36 U/L (10.0-35.0); C-REACTIVE PROTEIN 1.81 mg/dL (<0.5)
== END 2019-10-20 15:18 | disposition home or self-care (01) ==
LOC: ER 13:13
DX: J06.9 Acute upper respiratory infection, unspecified (principal); F17.210 Nicotine dependence, cigarettes, uncomplicated; E78.00 Pure hypercholesterolemia, unspecified; I10 Essential (primary) hypertension
CPT/HCPCS: 71046; 80053; 84145; 85025; 86140; 87400; 96365; 99283; 99284